=== PATIENT | female | born 1965 | race Caucasian/White ===

== ENCOUNTER 2018-01-06 00:01 | Emergency (ER) | payer SELFPAY ==
[~2018-01-06] VITALS: Ht 157.5 cm; Wt 59.0 kg
[~2018-01-06 00:01] MED LIST: NO CURRENT MEDS
[2018-01-06] MEDS ORDERED: KETOROLAC TROMETHAMINE 30 MG/ML VIAL IV STA (00:08)
[2018-01-06] MEDS ORDERED: ACETAMIN/BUTALBITAL/CAFFEINE TAB PO ONE (00:15)
[2018-01-06] MEDS ORDERED: DIPHENHYDRAMINE HCL INJ 50 MG/ML VIAL IV ONE (00:15)
[2018-01-06] MEDS ORDERED: METOCLOPRAMIDE HCL 10 MG/2ML VIAL IV ONE (00:15)
--- NOTE | 2018-01-06 00:51 | Diagnostic Imaging Report ---
EXAMINATION: Head CT without contrast. HISTORY:Headache. COMPARISON: Report of CT brain from 09/03/2010, images are not available for comparison at the time of interpretation. TECHNIQUE: Multidetector axial images were obtained from the foramen magnum to the vertex without contrast. The images were reconstructed using brain and bone algorithms. Thin section brain images were reformatted into coronal and sagittal planes. Intravenous contrast: None IMAGE QUALITY: Acceptable. FINDINGS: Skull/scalp: No abnormality. Parenchyma: No abnormal density. No acute hemorrhage, mass or acute major vascular territorial infarct. Arteries: No density suggestive of thrombosis. Dural sinuses: No abnormal density suggestive of thrombosis. Ventricles: No hydrocephalus or displacement. Extra-axial spaces: No abnormal density. Brain volume: Normal for age. Craniocervical junction: No mass, Chiari malformation, or basilar invagination. Sella: No mass. Paranasal/mastoid sinuses: Imaged portions unremarkable. IMPRESSION: No intracranial abnormality. Signed by: Dr. Kathi Borjas M.D. on 01/06/2018 12:47 AM
[2018-01-06 01:21] VITALS: BP 155/79
== END 2018-01-06 01:24 | disposition home or self-care (01) ==
LOC: ER 00:01
DX: G44.52 New daily persistent headache (NDPH) (principal); E78.5 Hyperlipidemia, unspecified
CPT/HCPCS: 70450; 99284; J1200; J1885; J2765

== ENCOUNTER 2019-02-15 16:00 | Outpatient (RCR) | payer BC | END 2019-02-18 | LOC: OT 16:00 | PROVIDERS: ATTEND Orthopaedic Surgery Hand Surgery | DX: G56.01 Carpal tunnel syndrome, right upper limb (principal); M65.311 Trigger thumb, right thumb; M65.312 Trigger thumb, left thumb ==

== ENCOUNTER 2019-02-20 15:49 | Outpatient (RCR) | payer BC | END 2019-03-20 | LOC: OT 15:49 | PROVIDERS: ATTEND Orthopaedic Surgery Hand Surgery | DX: G56.01 Carpal tunnel syndrome, right upper limb (principal); M65.312 Trigger thumb, left thumb; M65.311 Trigger thumb, right thumb | CPT/HCPCS: 97139 ==